=== PATIENT | male | born 1985 | race Caucasian/White ===

== ENCOUNTER 2018-06-28 09:52 | Emergency (ER) | payer OTHER ==
[2018-06-28] MEDS ORDERED: Sodium Chloride 0.9% 5 ML Syringe FLUSH PRN (10:29)
--- NOTE | 2018-06-28 11:00 | EDM.PDOC ---
ED HPI GENERAL MEDICAL PROBLEM - General Chief Complaint: Abdominal Pain Stated Complaint: Abdominal pain Time Seen by Provider: 06/28/18 10:28 Source of Information: Reports: Patient History Limitations: Reports: No Limitations - History of Present Illness INITIAL COMMENTS - FREE TEXT/NARRATIVE: Patient is a 32-year-old gentleman who presents to the emergency department this afternoon with a complaint of right lower quadrant abdominal pain. Patient states yesterday afternoon noticed mild lower right abdomen pain, described as sharp and intermittent. Pain has persisted and has increased in intensity today. Patient states he's had several episodes of vomiting. Denies chest pain, shortness of breath, fever, bowel changes, dysuria, testicular pain , blood in stool, or blood in vomitus. Onset: Gradual Onset Date: 06/27/18 Duration: Day(s): Location: Reports: Abdomen Quality: Reports: Sharp Severity: Mild Improves with: Reports: None Worsens with: Reports: None Context: Denies: Activity, Exercise, Lifting, Trauma Associated Symptoms: Reports: Nausea/Vomiting. Denies: Chest Pain, Fever/Chills , Shortness of Breath Right Lower Abdominal Pain Score (Numeric/FACES): 6 - Related Data Allergies Allergy/AdvReac Type Severity Reaction Status Date / Time Penicillins Allergy Cannot Verified 06/28/18 10:41 Remember Home Meds: Home Meds . [No Known Home Meds] 06/28/18 [History] Past Medical History - Past Health History Medical/Surgical History: Denies Medical/Surgical History Social & Family History - Tobacco Use Smoking Status *Q: Current Every Day Smoker Years of Tobacco use: 10 Packs/Tins Daily: 1.3 - Recreational Drug Use Recreational Drug Use: No ED ROS GENERAL - Review of Systems Review Of Systems: ROS reveals no pertinent complaints other than HPI. Constitutional: Reports: No Symptoms HEENT: Reports: No Symptoms Respiratory: Reports: No Symptoms Cardiovascular: Reports: No Symptoms Endocrine: Reports: No Symptoms GI/Abdominal: Reports: Abdominal Pain, Nausea, Vomiting. Denies: Black Stool, Bloody Stool, Constipation, Diarrhea, Hematemesis, Mucous in Stool : Reports: No Symptoms Musculoskeletal: Reports: No Symptoms Skin: Reports: No Symptoms Neurological: Reports: No Symptoms Psychiatric: Reports: No Symptoms Hematologic/Lymphatic: Reports: No Symptoms Immunologic: Reports: No Symptoms ED EXAM, GI/ABD - Physical Exam Exam: See Below Exam Limited By: No Limitations General Appearance: Alert, WD/WN, No Apparent Distress Throat/Mouth: Normal Inspection, Normal Oropharynx, No Airway Compromise Head: Atraumatic, Normocephalic Respiratory/Chest: No Respiratory Distress, Lungs Clear, Normal Breath Sounds, No Accessory Muscle Use, Chest Non-Tender Cardiovascular: Normal Peripheral Pulses, Regular Rate, Rhythm, No Murmur GI/Abdominal Exam: Normal Bowel Sounds, Soft, Tender (Right lower quadrant). No : Distended, Guarding, Rigid, Rebound, Hernia, Mass, Hepatomegaly, Splenomegaly (Male) Exam: No Hernia Back Exam: Normal Inspection. No: CVA Tenderness (L), CVA Tenderness (R) Extremities: Normal Inspection, No Pedal Edema Neurological: Alert, Oriented, Normal Cognition Psychiatric: Normal Affect, Normal Mood Skin Exam: Warm, Dry, Intact, Normal Color, No Rash Lymphatic: No Adenopathy Course - Vital Signs Last Recorded V/S: Last Vital Signs Temp 98.5 F 06/28/18 12:40 Pulse 81 06/28/18 12:40 Resp 20 06/28/18 12:40 BP 124/45 L 06/28/18 12:40 Pulse Ox 98 06/28/18 12:40 - Orders/Labs/Meds Orders: Active Orders 24 hr Category Date Time Status Peripheral IV Care [RC] . DIRECTED Care 06/28/18 10:30 Active Abdomen Pelvis w Cont [CT] Stat Exams 06/28/18 10:29 Taken UA W/MICROSCOPIC [URIN] Stat Lab 06/28/18 10:30 Ordered Sodium Chloride 0.9% [Normal Saline] Med 06/28/18 12:30 Active 50 ml FLUSH ASDIRECTED Sodium Chloride 0.9% [Syrex Flush] Med 06/28/18 10:29 Active 5 ml FLUSH Q8HR PRN Peripheral IV Insertion Adult [OM.PC] Routine Oth 06/28/18 10:29 Ordered Medication Orders Sodium Chloride (Syrex Flush) 5 ml FLUSH Q8HR PRN PRN Reason: Keep Vein Open Sodium Chloride (Normal Saline) 50 ml FLUSH ASDIRECTED LES Labs: Laboratory Tests 06/28/18 06/28/18 06/28/18 Range/Units 10:30 10:30 10:30 WBC 18.08 H (5.00-10.00) 10^3/uL RBC 4.84 (4.50-6.00) 10^6/uL Hgb 14.5 (13.0-17.0) g/dL Hct 43.0 (40.0-52.0) % MCV 88.8 (82.0-92.0) fL MCH 30.0 (27.0-31.0) pg MCHC 33.7 (32.0-36.0) g/dL RDW 12.9 (11.5-14.5) % Plt Count 319 (150-400) 10^3/uL MPV 10.8 H (7.4-10.4) fL Immature Gran % (Auto) 0.2 (0.0-5.0) % Neut % (Auto) 83.2 H (50.0-70.0) % Lymph % (Auto) 11.3 L (20.0-40.0) % [place] % (Auto) 4.4 (2.0-8.0) % Eos % (Auto) 0.7 L (1.0-3.0) % Baso % (Auto) 0.2 (0.0-1.0) % Immature Gran # (Auto) 0.03 (0.00-0.50) 10^3/uL Neut # (Auto) 15.05 H (2.50-7.00) 10^3/uL Lymph # (Auto) 2.05 (1.00-4.00) 10^3/uL [place] # (Auto) 0.79 (0.10-0.80) 10^3/uL Eos # (Auto) 0.12 (0.10-0.30) 10^3/uL Baso # (Auto) 0.04 (0.00-0.10) 10^3/uL Sodium 141 (136-145) mmol/L Potassium 4.1 (3.3-5.3) mmol/L Chloride 102 (98-115) mmol/L Carbon Dioxide 28.1 (21.0-32.0) mmol/L Anion Gap 15.0 (5-15) mmol/L BUN 13 (6-25) mg/dL Creatinine 0.73 (0.51-1.17) mg/dL Est Cr Clr Drug Dosing 180.01 mL/min Estimated GFR (MDRD) > 60 mL/min Glucose 117 mg/dL Calcium 9.1 (8.7-10.3) mg/dL Total Bilirubin 0.3 (0.2-1.0) mg/dL AST 20 (15-37) U/L ALT 48 (12-78) U/L Alkaline Phosphatase 74 (46-116) IU/L Total Protein 7.4 (6.4-8.2) g/dL Albumin 3.61 (3.00-4.80) g/dL Lipase 75 (73-393) U/L Specimen Type Urinblad Urine Color Yellow (YELLOW) Urine Appearance Slightly cloudy H (CLEAR) Urine pH 5.0 (5.0-9.0) Ur Specific [place] 1.025 (1.005-1.030) Urine Protein Negative (NEGATIVE) mg/dL Urine Glucose (UA) Negative (NEGATIVE) mg/dL Urine Ketones Trace H (NEGATIVE) mg/dL Urine Occult Blood Trace-intact H (NEGATIVE) Urine Nitrite Negative (NEGATIVE) Urine Bilirubin Negative (NEGATIVE) Urine Urobilinogen 0.2 (0.2-1.0) E.U./dL Ur Leukocyte Esterase Negative (NEGATIVE) Urine RBC 0-5 /HPF Urine WBC 0-5 /HPF Ur Epithelial Cells Moderate H /LPF Urine Bacteria Few (NONE TO FEW) /HPF Meds: Medications Generic Name Dose Route Start Last Admin Trade Name Freq PRN Reason Stop Dose Admin Sodium Chloride 5 ml 06/28/18 10:29 Syrex Flush FLUSH Q8HR PRN Keep Vein Open Sodium Chloride 50 ml 06/28/18 12:30 Normal Saline FLUSH ASDIRECTED LES Discontinued Medications Generic Name Dose Route Start Last Admin Trade Name Freq PRN Reason Stop Dose Admin Iopamidol 75 ml 06/28/18 12:16 Isovue-300 (61%) IV 06/28/18 12:17 ONETIME ONE - Radiology Interpretation Free Text/Narrative:: CT abdomen and pelvis with IV and oral contrast shows early changes of acute appendicitis. CT Results Date: 06/28/18 CT Results Time: 12:35 - Re-Assessments/Exams Free Text/Narrative Re-Assessment/Exam: 06/28/18 13:03 Patient afebrile, nontoxic appearing, vital signs stable, pain controlled. Discussed case in length with Dr. Ortiz, Gen. surgery at [facility]. Confirmed suspicion of appendicitis and requested patient to be transferred. Patient given 2 g of Rocephin and 500 mg Flagyl IV Patient has refused to be transferred via ambulance and states will driven by a friend in personal vehicle. Explained in depth to the patient the possible complications of this decision, however, unable to convince patient to be transferred via EMS. Patient states that he will proceed to [facility]. 06/28/18 13:56 Following administration of antibiotics, I attempted again to urged patient to proceed via EMS. However, was unsuccessful and patient will take private vehicle. Patient signed AGAINST MEDICAL ADVICE paperwork. 06/28/18 13:57 Departure - Departure Time of Disposition: 13:57 Disposition: Against Medical Advice 07 Condition: Fair Clinical Impression: Appendicitis Qualifiers: Appendicitis type: acute appendicitis Acute appendicitis type: unspecified acute appendicitis type Qualified Code(s): K35.80 - Unspecified acute appendicitis Abdominal pain Qualifiers: Abdominal location: right lower quadrant Qualified Code(s): R10.31 - Right lower quadrant pain - Discharge Information Instructions: Appendicitis, [id number] Referrals: PCP,None [Primary Care Provider] - Forms: ED Department Discharge Additional Instructions: Proceed directly to [facility]. Do not consume any food or liquid. - My Orders Last 24 Hours: My Active Orders 06/28/18 10:29 Abdomen Pelvis w Cont [CT] Stat Sodium Chloride 0.9% [Syrex Flush] 5 ml FLUSH Q8HR PRN Peripheral IV Insertion Adult [OM.PC] Routine 06/28/18 10:30 Peripheral IV Care [RC] . DIRECTED UA W/MICROSCOPIC [URIN] Stat 06/28/18 12:30 Sodium Chloride 0.9% [Normal Saline] 50 ml FLUSH ASDIRECTED - Assessment/Plan Last 24 Hours: My Active Orders 06/28/18 10:29 Abdomen Pelvis w Cont [CT] Stat Sodium Chloride 0.9% [Syrex Flush] 5 ml FLUSH Q8HR PRN Peripheral IV Insertion Adult [OM.PC] Routine 06/28/18 10:30 Peripheral IV Care [RC] . DIRECTED UA W/MICROSCOPIC [URIN] Stat 06/28/18 12:30 Sodium Chloride 0.9% [Normal Saline] 50 ml FLUSH ASDIRECTED Assessment:: Appendicitis Plan: AGAINST MEDICAL ADVICE discharge and patient will proceed to [facility] via personal vehicle
[2018-06-28 11:01] LABS: CHLORIDE,CL 102 mmol/L (98-115); SODIUM,NA 141 mmol/L (136-145)
[2018-06-28] MEDS ORDERED: Iopamidol 612 MG/ML 75 ML Bottle IV ONE (12:16)
[2018-06-28] MEDS ORDERED: Sodium Chloride 0.9% 50 ML SDV FLUSH SCH (12:30)
[2018-06-28] MEDS ORDERED: metroNIDAZOLE/Normal Saline 500 MG in Premix Bag 1 BAG IV ONE (12:55)
[2018-06-28] MEDS ORDERED: cefTRIAXone 1 GM Vial IVPUSH ONE (12:55)
[2018-06-28] MEDS ORDERED: Water For Injection, Sterile 20 ML ONE (12:59)
[2018-06-28] MEDS ORDERED: cefTRIAXone 1 GM Vial ONE (13:04)
[2018-06-28] MEDS ORDERED: Sodium Chloride 0.9% 50 ML ONE (13:25)
[2018-06-28] MEDS ORDERED: Diatrizoate Meglumine/Diatrizoate Sodium 37% 120 ML Bottle PO ONE (14:23)
== END 2018-06-28 14:45 | disposition left against medical advice (07) ==
LOC: KA.ED 09:52
DX: K35.80 Unspecified acute appendicitis (principal); F17.210 Nicotine dependence, cigarettes, uncomplicated; Z88.0 Allergy status to penicillin
CPT/HCPCS: 36415; 74177; 80053; 81001; 83690; 85025; 96365; 96375; 99284; J0696; J3490; J7050; Q9963; Q9967